=== PATIENT | female | born 1955 | race Caucasian/White ===

== ENCOUNTER 2017-11-09 14:00 | Outpatient (CLI) | payer BC ==
[~2017-11-09] VITALS: Ht 167.6 cm; Wt 57.7 kg
--- NOTE | ~2017-11-09 | HEMODYNAMI ---
PATIENT:BIANCA ARRIAGA MEDICAL RECORD: [id number] : 59 LOCATION:D.CAT ADMISSION DATE: 11/09/17 Generatedon:11/09/201715:37 Patient name: BIANCA ARRIAGA Patient #: [id number] SSN: [id number] : 1955 Date of study: 11/09/2017 Page: Of Hemodynamic Procedure Report Patient Data Patient Demographics Procedure consent was obtained First Name: BIANCA Gender: Female Last Name: CORINA : 1955 Middle Initial: JEANINE Age: 62 year(s) Patient #: [id number] Race: SSN: [id number] Additional ID: [id number] Contact details [address]: [address] [place] [address] State: [place] City: [place] Zip code: [address] Admission Admission Data Admission Date: 11/09/2017 Admission Time: 14:00 Arrival Date: 11/09/2017 Arrival Time: 14:00 Admit Source: Other Insurance Payor: Private health insurance Height (in.): 66 BSA: 1.66 (m2) Height (cm.): 167.64 BMI: 20.82 (kg/m2) Weight (lbs.): 129 Weight (kg.): 58.51 Lab Results Lab Result Date: 11/09/2017 Lab Result Time: 0:00 Biochemistry Name Units Result Min Max BUN mg/dl 23 --(----)-* 7 18 Creatinine mg/dl 0.9 --(-*--)-- 0.6 1.3 CBC Name Units Result Min Max Hemoglobin g/dl 13.1 -*(----)-- 13.5 17.5 Procedure Procedure Types Cath Procedure Diagnostic Procedure Sedation Charges Moderate Sedation up to 30 minutes Peripheral Cath Diagnostic Procedure Cath Peripheral Renal Arteriogram Peripheral vascular Intervention Stent Stent-Arterial Inititial Procedure Description Procedure Date Procedure Date: 11/09/2017 Procedure Start Time: 14:57 Procedure End Time: 15:36 Procedure Staff Name Function Francisco Santiago MD Performing Physician Mercedes Robin RT Monitor Kendra Aguilar RT Scrub Mat Quintanilla RN Nurse Nyla Jean RT Monitor Procedure Data Cath Procedure Fluoroscopy Diagnostic fluoroscopy Total fluoroscopy Time: 6.3 time: 6.3 min min Diagnostic fluoroscopy Total fluoroscopy dose: 440 dose: 440 mGy mGy Contrast Material Contrast Material Type Amount (ml) Isovue 300 87 Entry Location Entry Primary Successful Side Size Upsize Upsize Entry Closure Succes sful Closure Location (Fr) 1 (Fr) 2 (Fr) Remarks Device Remarks Femoral Right 5 Fr 6 Fr artery Short Estimated blood loss: 10 ml Diagnostic catheters Device Type Used For End Catheter Placement DIAGNOSTIC Pigtail 5Fr Procedure catheter ([id number]) DIAGNOSTIC JR 4 5Fr Procedure catheter ([id number]) Procedure Complications No complications Procedure Medications Medication Administration Route Dosage Oxygen NC 2 l/min Heparin Flush Bag added to field 2 bags (1000units/500ml NS) 0.9% NaCl I.V. 100 ml/hr Fentanyl I.V. 50 mcg Versed I.V. 1 mg Fentanyl I.V. 50 mcg Versed I.V. 1 mg Heparin Bolus I.V. 6000 units Plavix P.O. 600 mg Hemodynamics Rest BSA: 1.66 (m2) HGB: 13.1 (g/dl) O2 Consumption: Estimated: 225.76 (ml/min) O2 Co nsumption indexed: Estimated:136 (ml/min/m) Heart Rate: 0 (bpm) Pressure Samples Time Site Value (mmHg) Purpose Heart Use Rate(bpm) 15:00 AO 157/38(60) Snapshot 73 Snapshots Pre Cath Intra NCS Post Cath Vital Signs Time Heart Resp SPO2 etCO2 NIBP Rhythm Pain Sedation Rate (ipm) (%) (mmHg) (mmHg) Status Level (bpm) 14:42:44 60 16 98 0 112/71(87) NSR 0 (11) 10(A) , No pain 14:46:43 61 16 97 30.8 114/77(91) NSR 0 (11) 10(A) , No pain 14:50:45 63 16 96 33.1 117/70(94) NSR 0 (11) 9(A) , No pain 14:54:47 68 17 93 35.3 116/75(96) NSR 0 (11) 9(A) , No pain 14:58:48 71 15 94 39.8 115/73(93) NSR 0 (11) 9(A) , No pain 15:02:48 76 17 94 37.6 107/74(89) NSR 0 (11) 9(A) , No pain 15:06:48 78 16 94 38.3 110/71(92) NSR 0 (11) 9(A) , No pain 15:10:47 78 16 95 38.3 114/72(95) NSR 0 (11) 9(A) , No pain 15:14:51 77 16 95 36.8 111/67(89) NSR 0 (11) 9(A) , No pain 15:18:53 76 17 96 38.3 106/69(83) NSR 0 (11) 9(A) , No pain 15:22:54 76 17 96 34.5 109/65(91) NSR 0 (11) 9(A) , No pain 15:26:54 75 16 95 32.3 116/72(89) NSR 0 (11) 9(A) , No pain 15:30:56 70 16 97 36 133/74(93) NSR 0 (11) 9(A) , No pain 15:33:42 68 17 97 30.8 117/69(93) NSR 0 (11) 10(A) , No pain Medications Time Medication Route Dose Verified Delivered Reason Notes Effectiveness by by 14:44:16 Oxygen NC 2 Francisco Mat Per physician l/min Jack Quintanilla RN 14:44:23 Heparin Flush added 2 Francisco Mta used for Bag to bags Jack Quintanilla patient case manager (1000units/500ml field NS) 14:44:32 0.9% NaCl I.V. 100 Francisco Mat Per physician ml/hr Jack Quintanilla RN 14:49:59 Fentanyl I.V. 50 Francisco Mat for sedation mcg Jack Quintanilla RN 14:50:06 Versed I.V. 1 mg Francisco Mat for sedation Jack Quintanilla RN 14:57:34 Fentanyl I.V. 50 Francisco Mat for sedation mcg Jack Quintanilla RN 14:57:38 Versed I.V. 1 mg Francisco Mat for sedation Jack Quintanilla RN 15:13:29 Heparin Bolus I.V. 6000 Francisco Rivero for units Jack Quintanilla RN anticoagulation 15:32:22 Plavix P.O. 600 Francisco Rivero for mg Jack Quintanilla RN antiplatelet therapy Procedure Log Time Note 14:01:34 Informed consent obtained and on chart 14:03:02 Mercedes Robin RT(R) sent for patient. Start room use. 14:03:02 Time tracking: Regular hours 14:03:08 Plan of Care:Hemodynamics will remain stable., Cardiac rhythm will remain stable., Comfort level will be maintained., Respiratory function will remain adequate., Patient/ family verbilizes understanding of procedure., Procedure tolerated without complication., Recovers from procedure without complications.. 14:27:53 Diagnostic Cath Status : Elective 14:28:10 Admit Source: Other 14:28:14 Patient Height : 66 inches 14:28:29 Patient Weight : 129 lbs 14:28:29 Insurance Payor : Private health insurance 14:28:36 Arrival Date: 11/09/2017 2:00:00 PM 14:30:36 Lab Result : Hemoglobin 13.1 g/dl 14:30:36 Lab Result : Creatinine 0.9 mg/dl 14:30:36 Lab Result : BUN 23 mg/dl 14:37:57 Patient received from Pre/Post Procedure Room to CCL 2 Alert and oriented. Tansferred to table in Supine position. 14:37:58 Warm blankets applied, and jamil hugger turned on for patient comfort. 14:37:58 Correct patient and procedure confirmed by team. 14:37:59 ECG and BP/O2 sat monitors applied to patient. 14:38:00 Vital chart was started 14:38:13 Baseline sample Acquired. 14:39:49 Baseline sample Acquired. 14:39:53 Full Disclosure recording started 14:39:58 H&P Date Dictated: 11/09/2017 Within 30 days and on chart., H&P Addendum completed by physician on day of procedure. (MUST COMPLETE FOR ALL OUTPATIENTS). 14:40:00 Pre-procedure instructions explained to patient. 14:40:00 Pre-op teaching completed and patient verbalized understanding. 14:40:02 Family in waiting room. 14:40:03 Patient NPO since Midnight. 14:40:06 Is the patient allergic to Iodine/contrast media? No. 14:40:07 Was the patient premedicated? No 14:40:08 Is patient on blood thinner?No 14:40:09 Patient diabetic? No. 14:40:12 Previous problem with sedation/anesthesia? No ? 14:44:16 Oxygen 2 l/min NC was administered by Mat Quintanilla RN; Per physician; 14:44:23 Heparin Flush Bag (1000units/500ml NS) 2 bags added to field was administered by Mat Quintanilla RN; used for procedure; 14:44:32 0.9% NaCl 100 ml/hr I.V. was administered by Mat Quintanilla RN; Per physician; 14:47:38 Snore? Yes 14:47:41 Sleep apnea? No 14:47:48 Patient diabetic? No. 14:47:52 Is patient on blood thinner?No 14:47:58 Dentures? No ? 14:48:05 IV patent on arrival in left forearm with 0.9% NaCl at [facility]. 14:48:10 Lab results completed and on chart. 14:48:14 Right groin area was prepped with chlora-prep and draped in sterile fashion 14:48:19 Alarms reviewed by R. N. 14:48:19 Sharps counted by scrub and verified by R.N. 14:48:25 Physician paged 14:49:21 Physician arrived 14:49:21 --------ALL STOP TIME OUT------ 14:49:22 Final Timeout: patient, procedure, and site verified with staff and physician. All members of the team are in agreement. 14:49:25 Right groin site verified by team. 14:49:28 Physical assessment completed. ASA score P 2 - A patient with mild systemic disease as per Francisco Santiago MD. 14:49:33 Sedation plan: IV Moderate Sedation Medication:Versed, Fentanyl 14:49:59 Fentanyl 50 mcg I.V. was administered by Mat Quintanilla RN; for sedation; 14:50:06 Versed 1 mg I.V. was administered by Mat Quintanilla RN; for sedation; 14:50:08 Use device set Femoral Dx 14:50:10 ACIST Syringe (91242) opened to sterile field. 14:50:10 Bag Decanter (2002S) opened to sterile field. 14:50:11 Medline Cath Pack ([id number]) opened to sterile field. 14:50:12 SHEATH 5FR Sumner (VSU247) opened to sterile field. 14:50:13 DIAGNOSTIC WIRE .035 260cm J wire (815254) opened to sterile field. 14:50:14 ACIST Hand Control (04881) opened to sterile field. 14:50:14 ACIST Manifold (04038) opened to sterile field. 14:50:15 DIAGNOSTIC Multipack 5Fr catheter set (BF0804) opened to sterile field. 14:50:15 Tegaderm 4 x 4 (1626W) opened to sterile field. 14:50:16 PERCUTANEOUS ENTRY 19GA needle opened to sterile field. 14:55:54 Procedure started. 14:57:14 Local anesthetic to right femoral artery with Lidocaine 2% by Francisco Santiago MD.INITIAL ACCESS ONLY 14:57:34 Fentanyl 50 mcg I.V. was administered by Mat Quintanilla RN; for sedation; 14:57:35 Zero performed for pressure channel P1 14:57:38 Versed 1 mg I.V. was administered by Mat Quintanilla RN; for sedation; 14:59:17 A 5 Fr sheath was inserted into the Right Femoral artery 14:59:33 A DIAGNOSTIC Pigtail 5Fr catheter ([id number]) was advanced over the wire and used for Procedure. 15:01:22 Catheter removed. 15:01:33 A DIAGNOSTIC JR 4 5Fr catheter (231271F) was advanced over the wire and used for Procedure. 15:02:12 Right renal angiography performed. 15:02:42 Left renal angiography performed. 15:07:40 Catheter removed. 15:09:36 SHEATH 6FR Sumner (BSE203) opened to sterile field. 15:09:36 Cordis 6Fr RDC guide catheter opened to sterile field. 15:09:37 INFLATOR Merit BasixCompak (IM9585) opened to sterile field. 15:09:44 Proceeding to intervention. 15:09:54 Sheath upsized to a 6 Fr Short. 15:10:47 BMW 300cm Dequincy 2 J wire ([id number]) opened to sterile field. 15:10:48 TUBING High Pressure Extension Tubing (Jack) (JY3232F) opened to sterile field. 15:11:00 6 Fr RDC guide catheter was inserted over the wire 15:12:45 BMW wire advanced. 15:13:29 Heparin Bolus 6000 units I.V. was administered by Mat Quintanilla RN; for anticoagulation; 15:13:41 Wire advanced across lesion. 15:19:09 Inflation number: 1 A SABER 4.0 x 2 x 150 balloon ([id number]) was prepped and advanced across the Mid Renal, Left, then inflated to 10 EDE for 0:20 (min:sec). 15:21:08 Kendra Aguilar RT(R) was relieved by Nyla Jean RT(R) as monitoring person 15:21:22 Balloon re-inserted over wire. 15:26:32 Inflation Number: 2 A PALMAZ BLUE 6 X 18 X 80 stent ([id number]) was prepped and advanced across the Mid Renal, Left. The stent was deployed at 6 EDE for 0:17 (min:sec). 15:27:42 Stent catheter was removed intact over wire. 15:27:46 Wire removed. 15:28:25 Guide catheter removed. 15:29:46 Procedure ended.(Physican Out) 15:30:15 Fluoroscopy time 06.30 minutes. 15:30:19 Fluoroscopy dose: 440 mGy 15:30:19 Flurop Dose total: 440 15:30:23 Contrast amount:Isovue 300 87ml. 15:30:24 Sharps counted by scrub and verified by R.N. 15:30:26 Insertion/operative site no bleeding no hematoma. 15:30:30 Post-op/insertion site Right Femoral artery dressed using a 4 x 4 and Tegaderm. 15:30:34 Post right femoral artery:stable, clean and dry 15:30:35 Post Procedure Pulses reassessed and unchanged 15:30:40 Post-procedure physical assessment completed. ASA score P 2 - A patient with mild systemic disease as per Francisco Santiago MD. 15:30:42 Post procedure rhythm: unchanged. 15:30:44 Estimated blood loss: 10 ml 15:30:46 Post procedure instruction explained to patient.Patient verbalizes understanding. 15:30:46 Patient needs reinforcement of post procedure teaching. 15:31:26 Procedure type changed to Cath procedure, Diagnostic procedure, Sedation Charges, Moderate Sedation up to 30 minutes, Peripheral Cath Diagnostic Procedure, Cath Peripheral, Renal Arteriogram, Peripheral vascular Intervention, Stent, Stent-Arterial Inititial 15:31:30 Procedure Complication : No complications 15:31:32 See physician's report for complete and final results. 15:31:51 EXOSEAL 6Fr (EX600) opened to sterile field. 15:32:22 Plavix 600 mg P.O. was administered by Mat Quintanilla RN; for antiplatelet therapy; 15:35:40 Procedure and supply charges have been captured, reviewed, submitted and are correct. 15:36:07 Vital chart was stopped 15:36:13 Report given to Pre/Post Procedure Room. 15:36:16 Patient transfered to Pre/Post Procedure Room with Stretcher. 15:36:25 Procedure ended. 15:36:25 Full Disclosure recording stopped 15:36:49 End room use (Document Last) Intervention Summary Intervention Notes Time ActionType Lesion and Equipment Action# Pressure Duration Attributes Used 15:19:09 Inflate Mid Renal, SABER 4.0 x 1 10 00:20 balloon Left 2 x 150 balloon ([id number]) 15:26:32 Place stent Mid Renal, PALMAZ BLUE 2 6 00:17 Left 6 X 18 X 80 stent ([id number]) Device Usage Item Name Manufacture Quantity Catalog Hospital Part Current Minimal Lot# / Number Charge Number Stock Stock Serial# Code ACIST Acist 1 21120 143115 528317 145858 20 Syringe Medical (32908) Systems Inc Bag Decanter Microtek 1 2001S 260426 93173 672947 5 (2001S) Medical Inc. Medline Cath Cardinal 1 [id number] 173459 31941 176936 5 Pack Health ([id number]) SHEATH 5FR Terumo 1 AFU530 324576 893965 580806 40 Sumner (EST455) DIAGNOSTIC St Mickey 1 176814 287075 784807 510097 30 WIRE .035 260cm J wire (330517) ACIST Hand Acist 1 46990 564245 034533 976694 5 Control Medical (99912) Systems Inc ACIST Acist 1 54037 131918 036538 096252 5 Manifold Medical (12913) Systems Inc DIAGNOSTIC Cardinal 1 TH5135 095487 89658 492676 30 Dizzion 5Fr catheter set (BJ7557) Tegaderm 4 x 3M 1 1626W 243619 352153 989045 5 4 (1626W) PERCUTANEOUS Cook Medical 1 Y28495 586840 890382 5 ENTRY 19GA needle DIAGNOSTIC Cardinal 1 [id number] 688756 641083 628203 5 Pigtail 5Fr Health catheter (499979L) DIAGNOSTIC Cardinal 1 [id number] 022927 493964 272548 5 JR 4 5Fr Health catheter (808691A) SHEATH 6FR Terumo 1 CNL304 158113 679775 730255 40 Sumner (GZA872) Cordis 6Fr Cardinal 1 [id number] 966403 051172 311862 5 [facility] guide Health catheter INFLATOR Merit 1 XU0956 228942 207705 932465 15 Merit Medical BasixCompak (DC8709) BMW 300cm Evans 1 [id number] 489851 397528 815879 5 Dequincy 2 Vascular J wire (0755778N) TUBING High Merit 1 [id number] 711571 23708 432449 10 Pressure Medical Extension Tubing (Santiago) (QG9961U) SABER 4.0 x Cardinal 1 [id number] 770407 663006 5 2 x 150 Health balloon ([id number]) PALMAZ BLUE Cardinal 1 [id number] 900519 185035 5 [id number] 6 X 18 X 80 Health stent ([id number]) EXOSEAL 6Fr Cardinal 1 EX600 144617 913326 871371 10 (EX600) Health Signature Audit [place] Stage Time Signature Unsigned Intra-Procedure 11/09/2017 Nyla 3:37:04 PM Counts RT(R) Signatures Monitor : Mercedes Robin RT Signature : Date : Time : Monitor : Nyla Signature : Counts RT Date : Time : [id number] [place] [address]
[2017-11-09 12:26] LABS: BASOPHILS 0.6 % (0-2); EOSINOPHILS 1.1 % (0-7); HEMATOCRIT 38.6 % (36.0-48.0); HEMOGLOBIN 13.1 g/dL (12-16); IMMATURE GRANULOCYTES 0.3 % (0-5); LYMPHOCYTES 40.4 % (15-50); MCH 30.3 pg (26.0-34.0); MCHC 33.9 g/dL (31.0-37.0); MCV 89.1 fL (80.0-100.0); MEAN PLATELET VOLUME 9.7 fL (7.4-10.4); MONOCYTES 5.6 % (2-11); PLATELET COUNT 189 10x3/uL (130-400); RBC 4.33 10x6/uL (4.00-5.40); RDW 12.8 % (11.5-14.5); WBC 7.3 10x3/uL (4.8-10.8)
[2017-11-09 12:37] VITALS: BP 107/64; Ht 167.6 cm; Wt 57.7 kg
[2017-11-09 12:46] LABS: ANION GAP 12.5 mmol/L (8-16); CALCIUM 9.8 mg/dL (8.5-10.1); CARBON DIOXIDE 26.2 mmol/L (21.0-32.0); CREATININE - SERUM 0.9 mg/dL (0.6-1.3); POTASSIUM - SERUM 3.7 mmol/L (3.5-5.1)
[~2017-11-09 14:00] MED LIST: CATAPRES0.1 MG PO; EFFEXOR XR150 MG PO; REMERON30 MG PO; TOPROL XL50 MG PO
[2017-11-09] MEDS ORDERED: PLAVIX75 MG PO (16:13)
== END 2017-11-09 19:30 | disposition home or self-care (01) ==
LOC: D.CATH 14:00
PROVIDERS: Internal Medicine Cardiovascular Disease
DX: I15.0 Renovascular hypertension (principal); I70.1 Atherosclerosis of renal artery; Z01.812 Encounter for preprocedural laboratory examination